=== PATIENT | female | born 1985 | race African-American/Black ===

== ENCOUNTER 2017-08-01 18:29 | Emergency (ER) | payer OTHER ==
[~2017-08-01] VITALS: Ht 160 cm; Wt 80.0 kg
[~2017-08-01 18:29] MED LIST: CEPH500C3 PO; Z.0.NO CURRENT MEDS; ZOFR4TAB3 SL
[2017-08-01 18:42] VITALS: BP 142/94; PULSE 99; RESP 16; TEMP 99.6; O2SAT 100
[2017-08-01] MEDS ORDERED: ZOFR4TAB3 SL (20:39)
[2017-08-01] MEDS ORDERED: TYLETAB34 PO (20:39)
[2017-08-01 20:41] LABS: BLOOD, URINE LARGE (NEG); GLUCOSE,URINE NEG (NEG); KETONE, URINE TRACE mg/dL (NEG); NITRITE,URINE NEG (NEG)
[2017-08-01 20:49] LABS: RBC, URINE INNUM /hpf (0-3); URINE COLOR AMBER (YELLW/STRAW)
[2017-08-01 20:50] VITALS: BP 149/74; PULSE 95; RESP 14; O2SAT 100
[2017-08-01 20:50] LABS: BACTERIA, URINE RARE /hpf; COMMENT (UR) CULTURE INDICATED; CULTURE IF INDICATED CULTURE INDICATED; MUCUS URINE MANY /lpf (OCC)
[2017-08-01] MEDS ORDERED: CEPH-460 PO (20:52)
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
== END 2017-08-01 21:10 | disposition home or self-care (01) ==
LOC: PHED 18:29
DX: N92.0 Excessive and frequent menstruation with regular cycle (principal); I10 Essential (primary) hypertension
CPT/HCPCS: 81001; 84703; 87086; 99284